=== PATIENT | female | born 1985 | race American Indian/Alaskan Native ===

== ENCOUNTER 2016-12-26 06:27 | Emergency (ER) | payer OTHER ==
[2016-12-26 06:51] VITALS: BP 175/94
[2016-12-26 07:11] LABS: Basophils % (Auto) 1.1 % (0.0-1.8); Eosinophils % (Auto) 2.9 % (0.0-4.3); Hemoglobin 11.3 gm/dl (10.1-14.3); Mean Corpuscular HGB Conc 32 % (30-34); Mean Corpuscular Volume 79 fl (79-97); Platelet Count 375 K/mm3 (140-440); Red Blood Count 4.44 M/mm3 (3.65-5.03); Red Cell Distribution Width 15.7 % (13.2-15.2); White Blood Count 8.8 K/mm3 (4.5-11.0)
[2016-12-26 07:14] LABS: Mean Corpuscular Hemoglobin 26 pg (28-32)
[2016-12-26 07:25] LABS: Anion Gap 16 mmol/L; BUN/Creatinine Ratio 13.75; Blood Urea Nitrogen 11 mg/dL (7-17); Calcium 8.5 mg/dL (8.4-10.2); Carbon Dioxide 24 mmol/L (22-30); Chloride 101.3 mmol/L (98-107); Glucose 106 mg/dL (65-100); Potassium 3.9 mmol/L (3.6-5.0); Sodium 137 mmol/L (137-145)
[2016-12-26 08:17] LABS: Bilirubin,Urine NEG (Negative); Blood,Urine NEG (Negative); Ketones,Urine NEG (Negative); Leukocyte Esterase,Urine NEG (Negative); Mucus,Urine FEW /HPF; Nitrite,Urine NEG (Negative); Protein,Urine <15 mg/dL mg/dL (Negative); Urobilinogen,Urine < 2.0 mg/dL (<2.0); WBC,Urine < 1.0 /HPF (0.0-6.0)
--- NOTE | 2016-12-26 08:17 | Emergency Department Report ---
HPI - General Chief Complaint: Weakness Time Seen by Provider: 12/26/16 08:05 - HPI HPI: Patient is a 31-year-old obese female who presents to ED complaining of tingling sensations in her fingers and feeling thirsty all the time 10 days. Patient states around December 16 she started experiencing tingling feelings in her fingers. Patient states that she started getting thirsty a lot and she says she felt dehydrated. Patient admits prior to that she has received 3 doses of phentermine and B12 injections once a week from a weight loss clinic for the past 3 weeks prior to onset of symptoms. Patient denies any chronic medical history. Patient states yesterday she noticed red rash on left wrist. Patient denies fever assess chills/nausea/vomiting/headache/blurred vision/ chest pain/shortness of breath/abdominal pain/diarrhea. ED Past Medical Hx - Past Medical History Previous Medical History?: No - Surgical History Past Surgical History?: No - Social History Smoking Status: Never Smoker Substance Use Type: None - Medications Home Medications: Home Medications Medication Instructions Recorded Confirmed Last Taken Type Hydrocortisone [Cortizone 10 1% 1 applicatio TP TID #1 tube 12/26/16 Unknown Rx GEL] ED Review of Systems ROS: Stated complaint: DEHYDRATION Other details as noted in HPI Constitutional: denies: chills, fever Eyes: denies: eye pain, eye discharge, vision change ENT: denies: ear pain, throat pain, dental pain, hearing loss Respiratory: denies: cough, shortness of breath, SOB at rest, wheezing Cardiovascular: denies: chest pain, palpitations Endocrine: no symptoms reported Gastrointestinal: denies: abdominal pain, nausea, vomiting, diarrhea, constipation, hematemesis, hematochezia Genitourinary: frequency. denies: urgency, dysuria, hematuria, discharge Musculoskeletal: denies: back pain, joint swelling, arthralgia Skin: denies: rash, lesions Neurological: denies: headache, weakness, numbness, paresthesias, confusion, abnormal gait Psychiatric: denies: anxiety, depression, auditory hallucinations, homicidal thoughts, suicidal thoughts Hematological/Lymphatic: denies: easy bleeding, easy bruising, swollen glands Physical Exam - Physical Exam Vital Signs: Vital Signs 12/26/16 06:43 Temperature 98.2 F Pulse Rate 81 Respiratory 18 Rate Blood Pressure 175/94 O2 Sat by Pulse 99 Oximetry Physical Exam: GENERAL: Alert and oriented x3, no apparent distress, Normal Gait, atraumatic. HEAD: Head is normocephalic and a-traumatic. EYES: Extra ocular muscles are intact. Pupils are equal, round, and reactive to light and accommodation. EARS: symetrical, atraumatic, gross auditory nml bilaterally. NOSE: Nose symetrical, Nontender,Nares appeared normal. MOUTH:Mouth is well hydrated and without lesions. Patent airways. NECK: Supple. Non edematous, No carotid bruits. No lymphadenopathy or thyromegaly. LUNGS: Symetrical with respiration, No wheezing, no rales or crackles, CTAB. HEART: S1, S2 present, regular rate and rhythm without murmur, no rubs, no gallops. ABDOMEN: No organomegaly was noted,Positive bowel sounds, soft, and non- distended. . Nontender to palpation on all Quadrants, NO CVA tenderness. EXTREMITIES/MUSCULOSKELETAL: No cyanosis, clubbing, rash, lesions or edema. Full ROM bilaterally. UE Pulses 2+ bilaterally. LE and UE 5+ strength bilaterally NEUROLOGIC: No focal Deficit, Cranial nerves II through XII are grossly intact. No loss of sensation, SKIN: Warm and dry, No lesions, No ulceration or induration present. ED Course Vital Signs 12/26/16 06:43 Temperature 98.2 F Pulse Rate 81 Respiratory 18 Rate Blood Pressure 175/94 O2 Sat by Pulse 99 Oximetry ED Medical Decision Making - Lab Data Result diagrams: 12/26/16 07:00 12/26/16 07:00 - Medical Decision Making 31-year-old female presents with allergic contact dermatitis. ED course: Patient received 10 mg of Claritin. CBC within normal limits, CMP shows mild hyperglycemia otherwise normal. Urinalysis is within normal limits test negative. All labs normal. Discussed with patient to follow up with primary care physician to be screened for diabetes. Discussed with patient and side effects of phentermine include but not limited to weakness, chest pain, numbness or tingling in the arms or legs, swelling of the feet or lower legs, trembling or shaking of the legs, arms, hands, or feet, trouble breathing. ,trouble with thinking, speaking, or walking. Discussed healthier ways of weight loss via diet and exercise. Discussed referral is given to call and follow up with one of those physicians. Discussed application of cortisone cream on mild alert contact dermatitis. Vital signs stable. Patient is in no acute or respiratory distress. Patient verbally states that she understands and she complies to follow-up Critical care attestation.: If time is entered above; I have spent that time in minutes in the direct care of this critically ill patient, excluding procedure time. ED Disposition Clinical Impression: Contact dermatitis Qualifiers: Contact dermatitis type: unspecified Contact dermatitis trigger: unspecified trigger Qualified Code(s): L25.9 - Unspecified contact dermatitis, unspecified cause Disposition: DISCHARGED TO HOME OR SELFCARE Is pt being admited?: No Does the pt Need Aspirin: No Condition: Stable Instructions: Contact Dermatitis (ED), Dehydration (ED), Low Fat Diet (ED), High Fiber Diet (ED), Weight Management (ED) Prescriptions: Hydrocortisone [Cortizone 10 1% GEL] 1 applicatio TP TID #1 tube Referrals: PRIMARY CARE, [Primary Care Provider] - 3-5 Days SHALOM BAH MD [Referring] - 3-5 Days JEFF AGUILAR MD [Referring] - 3-5 Days [facility] [Outside] - 3-5 Days [facility] [Outside] - 3-[address] [facility] [Outside] - 3-5 Days [facility] [Outside] - 3-5 Days Forms: Work/School Release Form(ED) Time of Disposition: 09:07
[2016-12-26] MEDS ORDERED: CLARITIN PO ONE (08:24)
== END 2016-12-26 09:19 | disposition home or self-care (01) ==
LOC: ED 06:27
DX: L25.9 Unspecified contact dermatitis, unspecified cause (principal)
CPT/HCPCS: 36415; 80048; 81001; 81025; 85025; 99283

== ENCOUNTER 2017-07-26 23:31 | Emergency (ER) | payer MEDICAID, OTHER ==
[2017-07-27 00:52] LABS: Basophils % (Auto) 0.4 % (0.0-1.8); Eosinophils % (Auto) 1.6 % (0.0-4.3); Hematocrit 31.9 % (30.3-42.9); Hemoglobin 10.4 gm/dl (10.1-14.3); Mean Corpuscular HGB Conc 33 % (30-34); Mean Corpuscular Volume 77 fl (79-97); Platelet Count 344 K/mm3 (140-440); Red Blood Count 4.13 M/mm3 (3.65-5.03); Red Cell Distribution Width 18.6 % (13.2-15.2); White Blood Count 10.6 K/mm3 (4.5-11.0)
[2017-07-27 00:58] LABS: Mean Corpuscular Hemoglobin 25 pg (28-32)
[2017-07-27 02:21] LABS: Bilirubin,Urine NEG (Negative); Blood,Urine LG (Negative); Ketones,Urine NEG (Negative); Leukocyte Esterase,Urine TR (Negative); Mucus,Urine FEW /HPF; Nitrite,Urine NEG (Negative); Urobilinogen,Urine < 2.0 mg/dL (<2.0)
[2017-07-27 02:22] LABS: RBC,Urine > 182.0 /HPF (0.0-6.0)
--- NOTE | 2017-07-27 02:38 | Ultrasound Report ---
FINAL REPORT EXAM: US OB \T\lt; = 14 WEEKS FETUS HISTORY: / VAG BLEEDING COMPARISON: None available. TECHNIQUE: Several real-time grayscale and color Doppler images were obtained. Transvaginal and transabdominal exam. FINDINGS: Uterus measures 15.2 x 9.1 x 2.5 centimeters. Right ovary measures 4.4 x 3.2 x 4.1 centimeters left ovary not visualized. Within the right ovary, there is a cystic structure measuring 3.1 x 2.5 x 2.5 centimeters. This may reflect corpus luteum. Single live IUP. Estimated gestational age 10 weeks four days. Estimated delivery date February 18, 2018. heart rate 169 beats per minute. Subchorionic hemorrhage measuring 5.5 x 3.7 x 2.2 centimeters. No adnexal masses are demonstrated. IMPRESSION: Single live IUP. Estimated gestational age 10 weeks 4 days. Estimated delivery date February 18, 2018. Moderate subchorionic hemorrhage. 3.1 centimeter right ovarian cystic structure which may reflect corpus luteum. Left ovary is not visualized. No adnexal masses are demonstrated.
--- NOTE | 2017-07-27 10:32 | Emergency Department Report ---
ED HPI - General Chief complaint: Vaginal Bleeding Stated complaint: 10 WEEKS VAG BLEEDING Time Seen by Provider: 07/27/17 10:07 Source: patient, family Mode of arrival: Ambulatory Limitations: No Limitations - History of Present Illness Initial comments: 32-year-old female who presents emergency Department with complaint of vaginal bleeding for approximately 12 hours. Patient states that she started bleeding fairly moderately over the course of the last 12 hours. She denies lightheadedness dizziness. She does denies any abdominal cramping. No fevers chills nausea vomiting. Otherwise feels well. MD Complaint: vaginal bleeding -: Sudden, hour(s) (12) Radiation: none Consistency: intermittent Improves with: none Associated symptoms: vaginal bleeding. denies: nausea/vomiting, vaginal discharge, abdominal pain, headache, vision changes, malaise, dysparuenia, shortness of breath, syncope, weakness - Related Data Previous Rx's Medication Instructions Recorded Last Taken Type Hydrocortisone [Cortizone 10 1% 1 applicatio TP TID #1 tube 12/26/16 Unknown Rx GEL] Allergies Allergy/AdvReac Type Severity Reaction Status Date / Time No Known Allergies Allergy Unverified 12/26/16 06:50 ED Review of Systems ROS: Stated complaint: 10 WEEKS VAG BLEEDING Other details as noted in HPI Comment: All other systems reviewed and negative Constitutional: denies: chills, fever, malaise, weakness Respiratory: see HPI. denies: cough, orthopnea, shortness of breath, SOB with exertion Cardiovascular: denies: chest pain, palpitations Gastrointestinal: denies: abdominal pain, nausea, diarrhea, constipation, hematemesis Genitourinary: denies: urgency, dysuria, frequency, hematuria, discharge, abnormal menses, dyspareunia Musculoskeletal: denies: back pain, joint swelling Neurological: denies: headache, weakness ED Past Medical Hx - Past Medical History Previous Medical History?: No - Surgical History Past Surgical History?: No - Family History Family history: no significant - Social History Smoking Status: Former Smoker Substance Use Type: None - Medications Home Medications: Home Medications Medication Instructions Recorded Confirmed Last Taken Type Hydrocortisone [Cortizone 10 1% 1 applicatio TP TID #1 tube 12/26/16 Unknown Rx GEL] ED Physical Exam - General Limitations: No Limitations General appearance: alert, in no apparent distress - Head Head exam: Present: atraumatic, normocephalic - Eye Eye exam: Present: normal appearance. Absent: scleral icterus, conjunctival injection - ENT ENT exam: Present: mucous membranes moist - Neck Neck exam: Present: normal inspection - Respiratory Respiratory exam: Present: normal lung sounds bilaterally. Absent: respiratory distress, wheezes - Cardiovascular Cardiovascular Exam: Present: regular rate, normal rhythm. Absent: systolic murmur, diastolic murmur, rubs, gallop - GI/Abdominal GI/Abdominal exam: Present: soft, normal bowel sounds. Absent: distended, tenderness - Extremities Exam Extremities exam: Present: normal inspection - Back Exam Back exam: Present: normal inspection - Neurological Exam Neurological exam: Present: alert, oriented X3 - Psychiatric Psychiatric exam: Present: normal affect, normal mood - Skin Skin exam: Present: warm, dry, intact, normal color. Absent: rash ED Course Vital Signs 07/26/17 07/27/17 23:53 03:53 Temperature 98.6 F 98.6 F Pulse Rate 97 H 90 Respiratory 20 16 Rate Blood Pressure 159/90 139/101 O2 Sat by Pulse 100 100 Oximetry ED Medical Decision Making - Lab Data Result diagrams: 07/27/17 00:04 Laboratory Results - last 24 hr 07/27/17 07/27/17 07/27/17 00:04 00:04 00:13 WBC 10.6 RBC 4.13 Hgb 10.4 Hct 31.9 MCV 77 L MCH 25 L MCHC 33 RDW 18.6 H Plt Count 344 Lymph % (Auto) 23.1 [place] % (Auto) 7.1 Eos % (Auto) 1.6 Baso % (Auto) 0.4 Lymph # 2.5 [place] # 0.8 Eos # 0.2 Baso # 0.0 Seg Neutrophils % 67.8 Seg Neutrophils # 7.2 HCG, Quant [id number] H Urine Color Urine Turbidity Urine pH Ur Specific [place] Urine Protein Urine Glucose (UA) Urine Ketones Urine Blood Urine Nitrite Urine Bilirubin Urine Urobilinogen Ur Leukocyte Esterase Urine WBC (Auto) Urine RBC (Auto) U Epithel Cells (Auto) Urine Mucus Blood Type O POSITIVE Antibody Screen TNR RAFAELA Antibody Screen Negative 07/27/17 01:55 WBC RBC Hgb Hct MCV MCH MCHC RDW Plt Count Lymph % (Auto) [place] % (Auto) Eos % (Auto) Baso % (Auto) Lymph # [place] # Eos # Baso # Seg Neutrophils % Seg Neutrophils # HCG, Quant Urine Color Red Urine Turbidity Clear Urine pH 6.0 Ur Specific [place] 1.011 Urine Protein 100 mg/dl Urine Glucose (UA) Neg Urine Ketones Neg Urine Blood Lg Urine Nitrite Neg Urine Bilirubin Neg Urine Urobilinogen < 2.0 Ur Leukocyte Esterase Tr Urine WBC (Auto) 0.0 Urine RBC (Auto) > 182.0 U Epithel Cells (Auto) 3.0 Urine Mucus Few Blood Type Antibody Screen RAFAELA Antibody Screen - Medical Decision Making 32-year-old female here with complaint of vaginal bleeding for 12 hours. She is not having lightheadedness dizziness. She is 10 weeks . Her ultrasound shows an IUP with moderate subchorionic hemorrhage. She otherwise appears well. Plan to discharge patient home with follow-up to an OB. She is a threatened miscarriage. Discussed this with patient length and her . Portions of this chart were dictated with dictation software. There may be dictation errors contained within this note. Critical care attestation.: If time is entered above; I have spent that time in minutes in the direct care of this critically ill patient, excluding procedure time. ED Disposition Clinical Impression: Threatened miscarriage Disposition: DC-01 TO HOME OR SELFCARE Is pt being admited?: No Condition: Stable Instructions: Threatened Miscarriage (ED) Additional Instructions: Please follow-up with your [employer] crm developer as soon as possible. Referrals: PRIMARY CARE, [Primary Care Provider] - 3-5 Days
[2017-07-27 12:15] VITALS: BP 128/68
== END 2017-07-27 12:22 | disposition home or self-care (01) ==
LOC: ED 23:31
DX: O20.0 Threatened abortion (principal); Z87.891 Personal history of nicotine dependence
CPT/HCPCS: 36415; 76801; 76817; 81001; 84702; 85025; 86850; 86900; 86901